=== PATIENT | female | born 1975 | race Two or more races ===

== ENCOUNTER 2017-10-31 10:24 | Emergency (ER) | payer OTHER ==
[2017-10-31 10:29] VITALS: TEMP 98.6; BMI 24.4
--- NOTE | 2017-10-31 10:38 | PDOC ---
History of Present Illness - General Chief Complaint: Headache Stated Complaint: HEADACHES Time Seen by Provider: 10/31/17 10:37 History Source: Patient Exam Limitations: No Limitations - History of Present Illness Initial Comments: This is a 41 YOF with h/o mild headaches, anemia d/t dysfuctional uterine bleeding, and BV diagnosed 2 days ago (patient has been on metronidazole since then) who p/w one day gradual onset sharp 8/10 bitemporal/frontal headache which is non-radiating. It worsens with light and noise, and she has associated nausea, NBNB vomiting x6 episodes this morning, loose non-bloody non-black diarrhea, and generalized weakness. She denies any fever, chills, constipation, neck pain, new back pain, SOB, chest pain, abdominal pain, vision changes, dizziness, numbness, tingling, focal weakness, urinary incontinence/retention, bowel incontinence, or other symptoms. She has not tried taking any medications for her symptoms. Past History - Past Medical History Allergies/Adverse Reactions: Allergies Allergy/AdvReac Type Severity Reaction Status Date / Time No Known Allergies Allergy Verified 10/31/17 10:25 Home Medications: Ambulatory Orders NK [No Known Home Medication] 10/31/17 COPD: No - Immunization History Immunization Up to Date: Yes - Suicide/Smoking/Psychosocial Hx Smoking History: Never smoked Review of Systems - Review of Systems Able to Perform ROS?: Yes Constitutional: Yes: Weakness (generalized). No: Chills, Fever, Unexplained wgt Loss HEENTM: No: Double Vision, Nose Congestion, Throat Pain Respiratory: No: Cough, Shortness of Breath Cardiac (ROS): No: Chest Pain, Palpitations ABD/GI: Yes: Diarrhea, Nausea, Vomiting. No: Constipated : No: Burning, Dysuria Musculoskeletal: No: Back Pain, Neck Pain Integumentary: No: Bruising, Rash Neurological: Yes: Headache. No: Numbness, Tingling, Weakness, Dizziness Endocrine: No: Unexplained Weight Gain, Unexplained Weight Loss *Physical Exam - Vital Signs Last Vital Signs Temp Pulse Resp BP Pulse Ox 98.6 F 97 H 18 117/50 100 10/31/17 10:26 10/31/17 10:26 10/31/17 10:26 10/31/17 10:10/31/17 10:26 - Physical Exam General Appearance: Yes: Nourished, Appropriately Dressed, Other (nontoxic and well appearing aside from mild apparent discomfort, laying in hospital bed with light off). No: Apparent Distress HEENT: positive: EOMI, DEEPTHI, Normal ENT Inspection, Normal Voice, Hearing Grossly Normal. negative: Scleral Icterus (R), Scleral Icterus (L), Nasal Congestion Neck: positive: Trachea midline, Supple, Lymphadenopathy (R), Lymphadenopathy (L ). negative: Tender, Rigid Respiratory/Chest: positive: Lungs Clear, Normal Breath Sounds. negative: Respiratory Distress, Crackles, Rhonchi, Stridor, Wheezing Cardiovascular: positive: Regular Rhythm, Regular Rate, S1, S2. negative: Edema , JVD, Murmur Gastrointestinal/Abdominal: positive: Normal Bowel Sounds, Soft. negative: Tender, Organomegaly, Pulsatile Mass, Guarding Musculoskeletal: positive: Normal Inspection. negative: Decreased Range of Motion, Vertebral Tenderness Extremity: positive: Normal Capillary Refill, Normal Inspection, Normal Range of Motion. negative: Tender, Cyanosis Integumentary: positive: Normal Color, Dry, Warm. 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 negative: EOM Palsy, Facial Droop, Numbness, Sensory Deficit, Confused, Disoriented ED Treatment Course - LABORATORY CBC & Chemistry Diagram: 10/31/17 11:30 10/31/17 11:30 Medical Decision Making - Medical Decision Making Adult female Pt p/w headache, no reported mechanism for injury, no new red flag symptoms (see HPI). Initial Vital Signs Temp Pulse Resp BP Pulse Ox 98.6 F 97 H 18 117/50 100 10/31/17 10:26 10/31/17 10:26 10/31/17 10:26 10/31/17 10:10/31/17 10:26 Exam: mildly uncomfortable, sitting in dark room, otherwise she is conversive, normal exam, normal neuro exam DDX IBNLT primary SOLORZANO syndrome (tension/migraine/cluster), trigeminal neuralgia, zoster, SAH (radha. sudden onset), subdural or epidural hematoma (radha. after trauma), ruptured/acutely expanded aneurysm, preeclampsia/eclampsia, encephalitis, meningitis, glaucoma, atypical PNA, idiopathic intracranial hypertension (uncommon in males), GCA (uncommon <50 yo), mass lesion, brain metastasis (radha. known CA patients and/or SOLORZANO with increasing severity/frequency) , brain abscess (radha. immunocompromised patients), DKA, etc. W/U ordered: CBCD CMP [place] ordered: IVF Reglan Benadryl Laboratory Tests 10/31/17 10/31/17 10/31/17 11:30 11:30 11:30 WBC 3.7 L RBC 3.82 Hgb 10.1 L Hct 30.1 L MCV 78.9 L MCH 26.5 MCHC 33.6 RDW 13.3 Plt Count 253 MPV 8.6 Absolute Neuts (auto) 1.6 Neutrophils % 43.7 Neutrophils % (Manual) 45.5 Band Neutrophils % 0.0 Lymphocytes % 31.8 Lymphocytes % (Manual) 39.6 Monocytes % 20.6 H Monocytes % (Manual) 13 H Eosinophils % 3.2 Eosinophils % (Manual) 2.0 Basophils % 0.7 Basophils % (Manual) 0.0 Myelocytes % (Man) 0 Promyelocytes % (Man) 0 Blast Cells % (Manual) 0 Nucleated RBC % 0 Metamyelocytes 0 Hypochromia 2+ Platelet Estimate Normal Sodium 141 Potassium 4.1 Chloride 106 Carbon Dioxide 26 Anion Gap 9 BUN 12 Creatinine 0.3 L Creat Clearance w eGFR > 60 Random Glucose 79 Calcium 9.9 Magnesium 1.7 L Total Bilirubin 0.6 AST 74 H ALT 117 H Alkaline Phosphatase 227 H Total Protein 7.5 Albumin 3.6 Serum , Qual Urine Color Yellow Urine Appearance Clear Urine pH 6.0 Ur Specific [place] 1.018 Urine Protein Negative Urine Glucose (UA) Negative Urine Ketones Negative Urine Blood Negative Urine Nitrite Negative Urine Bilirubin Negative Urine Urobilinogen 2.0 H Ur Leukocyte Esterase Negative 10/31/17 11:42 WBC RBC Hgb Hct MCV MCH MCHC RDW Plt Count MPV Absolute Neuts (auto) Neutrophils % Neutrophils % (Manual) Band Neutrophils % Lymphocytes % Lymphocytes % (Manual) Monocytes % Monocytes % (Manual) Eosinophils % Eosinophils % (Manual) Basophils % Basophils % (Manual) Myelocytes % (Man) Promyelocytes % (Man) Blast Cells % (Manual) Nucleated RBC % Metamyelocytes Hypochromia Platelet Estimate Sodium Potassium Chloride Carbon Dioxide Anion Gap BUN Creatinine Creat Clearance w eGFR Random Glucose Calcium Magnesium Total Bilirubin AST ALT Alkaline Phosphatase Total Protein Albumin Serum , Qual Negative Urine Color Urine Appearance Urine pH Ur Specific [place] Urine Protein Urine Glucose (UA) Urine Ketones Urine Blood Urine Nitrite Urine Bilirubin Urine Urobilinogen Ur Leukocyte Esterase Likely LFT elevation d/t metronidazole use. Patient is counseled to DC metronidazole. She has already tried and failed topical metronidazole in the past. She has an appointment with her primary care clinic tomorrow and will discuss BV treatment then. Vital Signs Temperature 98.6 F 10/31/17 12:57 Pulse Rate 92 H 10/31/17 12:57 Respiratory Rate 17 10/31/17 12:57 Blood Pressure 123/54 10/31/17 12:57 O2 Sat by Pulse Oximetry (%) 100 10/31/17 12:57 Reassessment: Patient states headache much improved, no nausea, repeat neuro exam benign. Patient has no abdominal ttp. The Pt has gotten significant relief of symptoms with ED medications. Workup is not concerning for emergency-level pathology at this time. The Pt is appropriate for discharge home w/ close outpatient f/u. She is comfortable with this plan. She will take Motrin and/or Tylenol for pain. She will follow up with her regular doctor tomorrow. Specific return precautions are discussed and they will come back to the ER if necessary. *DC/Admit/Observation/Transfer Diagnosis at time of Disposition: Transaminitis Headache Qualifiers: Headache type: unspecified Headache chronicity pattern: unspecified pattern Intractability: not intractable Qualified Code(s): R51 - Headache Nausea and vomiting Qualifiers: Vomiting type: unspecified Vomiting Intractability: non-intractable Qualified Code(s): R11.2 - Nausea with vomiting, unspecified - Discharge Dispostion Disposition: HOME Condition at time of disposition: Stable Decision to Admit order: No - Referrals - Patient Instructions Printed Discharge Instructions: DI for Headache, Liver Function Tests Additional Instructions: You were seen in the ER for a headache. We did an exam and laboratory work and we did not find any signs of an emergency. We did find that you have anemia and elevated liver enzymes, but this can be discussed with your primary care clinic. Your pain improved with the medications we gave you here in the ER. After our assessment, we believe you are not having a medical emergency and you are safe to go home. Please take [id number] pain relievers like naproxen ( Aleve) or ibuprofen (Motrin) or Tylenol. Stay very well-hydrated, and try avoiding foods containing the chemicals tyramine and nitrates (such as chocolate , cheese, and processed meats) because these are associated with migraine-type headaches. Please stop the metronidazole because this is probably causing your liver problem. Discuss treatment for your infection with your primary care clinic at your appointment tomorrow. Please come back to the ER at any time, 24 hours a day, for any new or worsening symptoms, like worsening headache, new numbness/tingling, fainting, dizziness, new vision changes, high fever, or other symptoms. If you are having symptoms that make it unsafe to drive, please call 911. - Post Discharge Activity
[2017-10-31] MEDS ORDERED: METOCLOPRAMIDE HCL INJECTION 10 MG/2 ML VIAL ONE (11:00)
[2017-10-31] MEDS ORDERED: METOCLOPRAMIDE HCL INJECTION 10 MG/2 ML VIAL IVPUSH ONE (11:03)
[2017-10-31] MEDS ORDERED: SODIUM CHLORIDE 0.9% 500 ML INFUS.BAG IV ONE (11:03)
[2017-10-31 11:47] LABS: BASO % 0.7 % (0-2.0); EOS % 3.2 % (0-4.5); HEMATOCRIT 30.1 % (32.4-45.2); HEMOGLOBIN 10.1 GM/dL (10.7-15.3); LYMPH % 31.8 % (8-40); MCH 26.5 pg (25.7-33.7); MCHC 33.6 g/dl (32.0-36.0); MEAN CELL VOLUME 78.9 fl (80-96); MEAN PLT VOLUME 8.6 fl (7.5-11.1); MONO % 20.6 % (3.8-10.2); NEUT % 43.7 % (42.8-82.8); PLATELET COUNT 253 K/MM3 (134-434); RBC 3.82 M/mm3 (3.60-5.2); RDW 13.3 % (11.6-15.6); WHITE BLOOD COUNT 3.7 K/mm3 (4.0-10.0)
[2017-10-31 11:56] LABS: URINE APPEARANCE CLEAR; URINE BILIRUBIN NEGATIVE (<2.0 mg/dL); URINE BLOOD NEGATIVE (NEGATIVE); URINE COLOR YELLOW; URINE GLUCOSE (UA) NEGATIVE (NEGATIVE); URINE KETONE NEGATIVE (NEGATIVE); URINE LEUK ESTERASE NEGATIVE (NEGATIVE); URINE NITRITE NEGATIVE (NEGATIVE); URINE PROTEIN NEGATIVE (NEGATIVE)
--- NOTE | 2017-10-31 12:10 | PDOC ---
Attending Attestation - Resident Resident Name: Johana Carcamo - ED Attending Attestation I have performed the following: I have examined & evaluated the patient, The case was reviewed & discussed with the resident, I agree w/resident's findings & plan, Exceptions are as noted - HPI HPI: 10/31/17 13:11 Patient is a 41 F, PMHx, anemia, who presents with a headache since yesterday afternoon. Patient states that her headache began yesterday around noon. She describes her headache as gradual onset, sharp, bitemporal, non-radiating, rates 8/10. She states that she also experienced nausea and vomiting (x6) this morning. She reports current sensitivity to light and sound. She has had mild headaches in the past and states her current headache feels similar but stronger. She was diagnosed with BV and started on flagyl PO 2 days ago. Denies stiff neck, rashes, fevers, chills, weakness, numbness, visual sxs. - Physicial Exam PE: 10/31/17 12:03 GENERAL: Awake, alert, and fully oriented, in no acute distress HEAD: No signs of trauma EYES: PERRLA, EOMI, sclera anicteric, conjunctiva clear ENT: Auricles normal inspection, hearing grossly normal, nares patent, oropharynx clear without exudates. Moist mucosa NECK: Normal ROM, supple, no lymphadenopathy, JVD, or masses LUNGS: Breath sounds equal, clear to auscultation bilaterally. No wheezes, and no crackles HEART: Regular rate and rhythm, normal S1 and S2, no murmurs, rubs or gallops ABDOMEN: Soft, nontender, normoactive bowel sounds. No guarding, no rebound. No masses EXTREMITIES: Normal range of motion, no edema. No clubbing or cyanosis. No cords, erythema, or tenderness NEUROLOGICAL: Normal speech, cranial nerves intact, negative pronator drift, 5/ 5 strength in all 4 extremities, normal sensation to light touch in all 4 extremities, normal cerebellar exam, normal gait, normal reflexes and tone BACK: no midline cervical, thoracic, lumbar ttp SKIN: Warm, Dry, normal turgor, no rashes or lesions noted. - Medical Decision Making 10/31/17 11:59 41yo F hx anemia, recent diagnosis of BV presents to the ED with 2 days of gradual onset bitemporal headache. Vitals and exam unremarkable. DDx includes tension headache vs migraine, unlikely SAH as no sudden onset, neuro intact, not meningitic. It's also possible headache is from flagyl which she has been on for 2 days for BV. No fevers or AMS to suggest meningitis. 10/31/17 13:19 HEadache significantly improved. AST/ALT and Alk phos mildly elevated, possibly from PO flagyl? Pt instructed to stop taking flagyl. Has f/u appt tomorrow with PMD where her LFTs should be repeated. Pt requests DC home. I discussed the physical exam findings, ancillary test results and final diagnoses with the patient. I answered all of the patient's questions. The patient was satisfied with the care received and felt comfortable with the discharge plan and treatment plan. The patient will call their primary care physician within 24 hours to arrange follow-up and will return to the Emergency Department with any new, persistent or worsening symptoms.
[2017-10-31 12:11] LABS: ALBUMIN 3.6 g/dl (3.4-5.0); ANION GAP 9 (8-16); BILIRUBIN,TOTAL 0.6 mg/dL (0.2-1.0); BLOOD UREA NITROGEN 12 mg/dL (7-18); CALCIUM 9.9 mg/dL (8.5-10.1); CHLORIDE 106 mmol/L (98-107); CO2 26 mmol/L (21-32); CREATININE 0.3 mg/dL (0.55-1.02); GLUCOSE,RANDOM 79 mg/dL (74-106); MAGNESIUM 1.7 mg/dL (1.8-2.4); POTASSIUM 4.1 mmol/L (3.5-5.1); SGOT/AST 74 U/L (15-37); SGPT/ALT 117 U/L (12-78); SODIUM 141 mmol/L (136-145); TOT PROT 7.5 g/dl (6.4-8.2)
[2017-10-31 12:12] LABS: ALK PHOS 227 U/L (45-117)
[2017-10-31 12:27] LABS: PLATELET ESTIMATE NORMAL
[2017-10-31 12:58] VITALS: BP 123/54; PULSE 92
== END 2017-10-31 13:30 | disposition home or self-care (01) ==
LOC: JER 10:24
PROC: 3E033GC Introduction of Other Therapeutic Substance into Peripheral Vein, Percutaneous Approach (ICD-10-PCS; principal; 2017-10-31)
PROC: 3E0337Z Introduction of Electrolytic and Water Balance Substance into Peripheral Vein, Percutaneous Approach (ICD-10-PCS; 2017-10-31)
DX: R74.0 Nonspecific elevation of levels of transaminase and lactic acid dehydrogenase [LDH] (principal); R51 Headache; R11.2 Nausea with vomiting, unspecified
CPT/HCPCS: 36415; 80053; 81003; 83735; 84703; 85025; 87086; 99283-25

== ENCOUNTER 2017-11-19 08:54 | Emergency (ER) | payer SELFPAY ==
[2017-11-19 08:58] VITALS: BMI 23.3
[2017-11-19] MEDS ORDERED: SODIUM CHLORIDE 1,000 ML IV STA (09:49)
[2017-11-19] MEDS ORDERED: ONDANSETRON 4 MG/2 ML VIAL IVPUSH ONE (09:49)
[2017-11-19] MEDS ORDERED: FAMOTIDINE 20 MG/50 ML IVPB 20 MG/50 ML MG IVPB ONE ×2 (10:00→10:49)
--- NOTE | 2017-11-19 10:38 | PDOC ---
History of Present Illness - General Chief Complaint: Nausea/Vomiting Stated Complaint: VOMITING, DIARRHEA Time Seen by Provider: 11/19/17 09:28 - History of Present Illness Initial Comments: 11/19/17 11:38 The patient is a 41-year-old female, with a significant past medical history of anemia, who presents to the ED with nausea, vomiting, and diarrhea that began yesterday morning. The patient reports vomiting innumerable times since yesterday; no blood noted in emesis. She reports 10-15 episodes of loose, watery stools; no blood or mucus noted. The patient has not been able to tolerate any fluids or solids. She denies any recent changes in her diet, recent sick contacts, or recent travel. On exam, the patient reports feeling generally weak. The patient has not followed up with her PCP regarding her current symptoms. Pt states she is currently being worked up by her PMD for her thyroid and liver - pt had elevated LFTs seen on bloodwork during her last ED bisit. The patient denies any fever, chills, or abdominal/pelvic pain. Denies any chest pain or shortness of breath. Denies dysuria, hematuria, frequency or urgency Denies vaginal DC or bleeding. Allergies: NKA Past surgical history: None reported. Social history: No reported cigarette, alcohol, or drug use. Past History - Past Medical History Allergies/Adverse Reactions: Allergies Allergy/AdvReac Type Severity Reaction Status Date / Time No Known Allergies Allergy Verified 11/19/17 08:56 Home Medications: Ambulatory Orders Ondansetron [Zofran Odt -] 4 mg SL TID PRN #12 od.tablet 11/19/17 CVA: No COPD: No Other medical history: "LIVER DISEASE" - Immunization History Immunization Up to Date: Yes - Suicide/Smoking/Psychosocial Hx Smoking History: Never smoked Hx Alcohol Use: No Drug/Substance Use Hx: No Substance Use Type: None Review of Systems - Review of Systems Comments:: 11/19/17 11:44 GENERAL/CONSTITUTIONAL: (+)generalized weakness, loss of appetite. No fever or chills. HEAD, EYES, EARS, NOSE AND THROAT: No change in vision. No ear pain or discharge. No sore throat. GASTROINTESTINAL: (+)nausea, vomiting, diarrhea. No constipation. GENITOURINARY: No dysuria, frequency, or change in urination. CARDIOVASCULAR: No chest pain or shortness of breath. RESPIRATORY: No cough, wheezing, or hemoptysis. MUSCULOSKELETAL: No joint or muscle swelling or pain. No neck or back pain. SKIN: No rash NEUROLOGIC: No headache, vertigo, loss of consciousness, or change in strength/ sensation. ENDOCRINE: No increased thirst. No abnormal weight change. HEMATOLOGIC/LYMPHATIC: No anemia, easy bleeding, or history of blood clots. ALLERGIC/IMMUNOLOGIC: No hives or skin allergy. *Physical Exam - Vital Signs Last Vital Signs Temp Pulse Resp BP Pulse Ox 98.0 F 90 16 124/59 100 11/19/17 08:56 11/19/17 08:56 11/19/17 08:56 11/19/17 08:56 11/19/17 08:56 - Physical Exam Comments: 11/19/17 11:44 GENERAL: Awake, alert, and fully oriented, in no acute distress HEAD: No signs of trauma EYES: PERRLA, EOMI, sclera anicteric, conjunctiva clear ENT: Auricles normal inspection, hearing grossly normal, nares patent, oropharynx clear without exudates. Moist mucosa NECK: (+)+b/l symmetric goiter with no palpable nodules. Normal ROM, supple, no lymphadenopathy, JVD. LUNGS: Breath sounds equal, clear to auscultation bilaterally. No wheezes, and no crackles HEART: Regular rate and rhythm, normal S1 and S2, no murmurs, rubs or gallops ABDOMEN: Soft, nontender, normoactive bowel sounds. No guarding, no rebound. No masses. No CVAT. EXTREMITIES: Normal range of motion, no edema. No clubbing or cyanosis. No cords , erythema, or tenderness BACK: No midline spinal tenderness in cervical/thoracic/lumbar region NEUROLOGICAL: Normal speech, cranial nerves intact, negative pronator drift, 5/ 5 strength in all 4 extremities, normal sensation to light touch in all 4 extremities, normal cerebellar exam, normal gait, normal reflexes and tone SKIN: Warm, Dry, normal turgor, no rashes or lesions noted. ED Treatment Course - LABORATORY CBC & Chemistry Diagram: 11/19/17 10:35 11/19/17 10:35 Medical Decision Making - Medical Decision Making 11/19/17 10:38 41yo F hx anemia presents to the ED with 24hrs of N/V/D. Vitals wnl. Exam with no abd ttp, +thyroid goiter. DDx includes but not limited to gastroenteritis vs colitis. Plan -labs -upt -ua -ivf, pepcid, zofran -reassess 11/19/17 12:05 Labs remarkable for: 1) once again elevated LFTs, but lower than during last visit 2) elevated monocyte % on differental 3) TSH undetectable There appears to be a chronic process going on that is unlikely related to presenting sxs of N/V/D. These likely represent a viral syndrome. With regards to abnormal labs, discussed with her PMD Dr. Bereket Monroy. Pt was seen by Dr. Hernández (her partner) in the office last week and had repeat labs that were similar to our results. Pt however did not have a TSH checked during previous visits. Discussed the goiter with Dr. Kellogg, she wants to see her in the office tomorrow after 12p when they have walk in hours. Clinically, pt does not appear to be in thyroid storm with normal vitals, mental status. Since she had good follow up in place, will PO chall pt at this time and if she tolerates , will DC to f/u tomorrow. Results explained to patient. 11/19/17 12:42 Pt tolerating PO. Given copy of labs. Told she will have diarrhea likely for a few more days. Prescribed zofran. I discussed the physical exam findings, ancillary test results and final diagnoses with the patient. I answered all of the patient's questions. The patient was satisfied with the care received and felt comfortable with the discharge plan and treatment plan. The patient will call their primary care physician within 24 hours to arrange follow-up and will return to the Emergency Department with any new, persistent or worsening symptoms. *DC/Admit/Observation/Transfer Diagnosis at time of Disposition: Transaminitis, Nausea and vomiting, Goiter, Diarrhea - Discharge Dispostion Disposition: HOME Condition at time of disposition: Stable Decision to Admit order: No - Prescriptions Prescriptions: Ondansetron [Zofran Odt -] 4 mg SL TID PRN #12 od.tablet PRN Reason: Nausea - Referrals Referrals: Michael Monroy [Non Staff, Medical] - - Patient Instructions Printed Discharge Instructions: A Look at Thyroid Disease, DI for Diarrhea and Traveler's Diarrhea -- Adult, DI for Nausea -- Adult, DI for Vomiting -- Adult, Thyroid Additional Instructions: Your labs in the emergency department were again abnormal. As discussed, please see Dr. Monroy tomorrow after 12pm during her walk in hours. She will be expecting you. Make sure to discuss: 1) Your thyroid goiter and abnormal thyroid function test. 2) Your liver function tests were better than last time, but are still abnormal and require work up 3) Your anemia With regards to your nausea, vomiting, and diarrhea, these symptoms are likely due to a virus. I have prescribed a medication for nausea/vomiting. Try to drink as much fluid as possible, this medication should help. You will likely continue to have diarrhea for a few more days. Return to the emergency department if you have any new, worsening, or concerning symptoms. Print Language: GIBRALTARIAN - Post Discharge Activity - Attestations Physician Attestion: 11/19/17 12:21 I, Dr. Jena Guerrier MD, attest that this document has been prepared under my direction and personally reviewed by me in its entirety. I further attest, that it accurately reflects all work, treatment, procedures and medical decision -making performed by me.
[2017-11-19 10:48] LABS: BASO % 0.8 % (0-2.0); EOS % 2.1 % (0-4.5); HEMOGLOBIN 10.4 GM/dL (10.7-15.3); LYMPH % 31.2 % (8-40); MCH 26.2 pg (25.7-33.7); MCHC 33.5 g/dl (32.0-36.0); MEAN CELL VOLUME 78.3 fl (80-96); MEAN PLT VOLUME 8.3 fl (7.5-11.1); NEUT % 40.9 % (42.8-82.8); PLATELET COUNT 270 K/MM3 (134-434); RBC 3.97 M/mm3 (3.60-5.2); RDW 13.8 % (11.6-15.6)
[2017-11-19] MEDS ORDERED: ONDANSETRON 4 MG/2 ML VIAL ONE (10:49)
[2017-11-19 10:55] LABS: URINE APPEARANCE CLEAR; URINE BILIRUBIN NEGATIVE (<2.0 mg/dL); URINE COLOR DKYELLOW; URINE GLUCOSE (UA) NEGATIVE (NEGATIVE); URINE KETONE NEGATIVE (NEGATIVE); URINE LEUK ESTERASE NEGATIVE (NEGATIVE); URINE NITRITE NEGATIVE (NEGATIVE); URINE PROTEIN NEGATIVE (NEGATIVE); URINE UROBILINOGEN 4.0 E.U/dl mg/dL (0.2-1.0)
[2017-11-19 10:57] LABS: HCG,QUALITATIVE URINE NEGATIVE
[2017-11-19 11:22] LABS: ALBUMIN 3.6 g/dl (3.4-5.0); ANION GAP 6 (8-16); BLOOD UREA NITROGEN 10 mg/dL (7-18); CALCIUM 9.6 mg/dL (8.5-10.1); CHLORIDE 106 mmol/L (98-107); CO2 26 mmol/L (21-32); CREATININE 0.3 mg/dL (0.55-1.02); GLUCOSE,RANDOM 93 mg/dL (74-106); LIPASE 154 U/L (73-393); POTASSIUM 4.2 mmol/L (3.5-5.1); SGOT/AST 84 U/L (15-37); SGPT/ALT 93 U/L (12-78); SODIUM 138 mmol/L (136-145)
[2017-11-19 11:33] LABS: ALK PHOS 189 U/L (45-117); BILIRUBIN,TOTAL 0.8 mg/dL (0.2-1.0); TOT PROT 7.9 g/dl (6.4-8.2)
[2017-11-19 13:57] VITALS: BP 120/62; PULSE 86; TEMP 98.2
[2017-11-19 15:56] LABS: PLATELET ESTIMATE ADEQUATE
== END 2017-11-19 13:57 | disposition home or self-care (01) ==
LOC: JER 08:54
PROC: 3E033GC Introduction of Other Therapeutic Substance into Peripheral Vein, Percutaneous Approach (ICD-10-PCS; principal; 2017-11-19)
DX: R74.0 Nonspecific elevation of levels of transaminase and lactic acid dehydrogenase [LDH] (principal); E04.8 Other specified nontoxic goiter
CPT/HCPCS: 36415; 80053; 81003; 83690; 84443; 84703; 85025; 87086; 99281-25; J7030

== ENCOUNTER 2018-01-11 13:12 | Emergency (ER) | payer OTHER ==
[2018-01-11 13:36] VITALS: BP 138/55; PULSE 72; TEMP 98.5; BMI 22.9
--- NOTE | 2018-01-11 14:12 | PDOC ---
Attending Attestation - Resident Resident Name: Edwar Gonzalez - ED Attending Attestation I have performed the following: I have examined & evaluated the patient, The case was reviewed & discussed with the resident, I agree w/resident's findings & plan, Exceptions are as noted - HPI HPI: 01/11/18 16:11 The patient is a 42-year-old female present to the emergency department with palpitations. The patient presents with 4 days of heart palpitations. The patient reports associated concern of B/l eye swelling and increased lethargy. Denies chest pain, shortness of breath, dyspnea or abdominal pain. Denies fever , chills. Denies unintentional weight loss. Denies changes in menstruation cycle. Allergies: NKA PMHx: anemia, hyperthyroidism PSHx: Liposuction 06/2017 SHx: None PCP: Dr Bereket Monroy - Physicial Exam PE: 01/11/18 16:08 GENERAL: Awake, alert, and fully oriented, in no acute distress HEAD: No signs of trauma EYES: (+) Slight Exophthalmos PERRLA, EOMI, sclera anicteric, conjunctiva clear NECK: (+) goiter. Normal ROM, supple, no lymphadenopathy, JVD. LUNGS: Breath sounds equal, clear to auscultation bilaterally. No wheezes, and no crackles HEART: Regular rate and rhythm, normal S1 and S2, no murmurs, rubs or gallops ABDOMEN: Soft, nontender, normoactive bowel sounds. No guarding, no rebound. No masses NEUROLOGICAL: Normal speech, normal gait - Medical Decision Making 01/11/18 16:08 Documentation prepared by Dahiana Zaragoza, acting as regional medical director for Irlanda Edwards MD. <Dahiana Zaragoza - Last Filed: 01/11/18 16:11> - Medical Decision Making 01/11/18 16:14 Pt presents to the ED complaining of palpitations for one day. Denies associated complaints. EKG shows sinus rhythm without ischemia. Differential includes hyperthyroidism, electrolyte disturbance, less likely occult arrhythmia. will check labs and cardiac enzymes. CXR, reassess. <Irlanda Edwards - Last Filed: 01/11/18 16:18>
--- NOTE | 2018-01-11 14:46 | PDOC ---
History of Present Illness - General Chief Complaint: Palpitations Stated Complaint: PALPITATIONS Time Seen by Provider: 01/11/18 13:58 - History of Present Illness Initial Comments: 01/11/18 14:46 42 yo F with a significant past medical history of anemia and hyperthyroidism s/ p thyrotoxicosis 1 month ago is here with palpitations and eye swelling for the past 4 days. She has also been feeling lethargic. She has no chest pain, difficulty breathing, or abdominal pain. She denies recent fevers, chills or infections. Denies hot or cold intolerance, denies recent weight gain or loss. She has been eating and drinking normally. She denies diaphoresis. Denies menstrual changes. Denies dysuria, frequency, urgency, diarrhea or constipation. She is taking methimazole bc of her recent thyrotoxicosis. She has gained weight over the past 2 weeks intentionally bc she was told she is too skinny. 01/11/18 14:49 Past History - Past Medical History Allergies/Adverse Reactions: Allergies Allergy/AdvReac Type Severity Reaction Status Date / Time No Known Allergies Allergy Verified 01/11/18 13:33 Home Medications: Ambulatory Orders Omeprazole 20 mg PO BID 12/02/17 RX: Clarithromycin 500 mg PO BID 12/02/17 Miscellaneous Medical Supply [Out[place] Order] [place] [facility] [place] Order[place] [facility] [place]: Amoxicillin - [Amoxicillin 500mg Capsule -] 1,000 mg PO BID 12/07/17 RX: Magnesium Oxide [Mag-Ox -] 400 mg PO DAILY #0 tablet 12/07/17 RX: Methimazole [Tapazole -] 15 mg PO TID #90 tablet 12/07/17 RX: Prochlorperazine Maleate [Compazine -] 5 mg PO BID #20 tablet 12/07/17 RX: propRANOLol HCL [Inderal -] 40 mg PO TID #90 tablet 12/07/17 RX: Propranolol HCl 40 mg PO TID #45 solution 01/11/18 Anemia: Yes COPD: No Liver Disease: Yes Thyroid Disease: Yes (hyper) - Surgical History Appendectomy: Yes - Immunization History Immunization Up to Date: Yes - Suicide/Smoking/Psychosocial Hx Smoking History: Never smoked Have you smoked in the past 12 months: No Hx Alcohol Use: No Drug/Substance Use Hx: No Substance Use Type: None Hx Substance Use Treatment: No Review of Systems - Review of Systems Comments:: 01/11/18 14:56 CONSTITUTIONAL: Absent: fever, chills, diaphoresis, generalized weakness, malaise, loss of appetite HEENT: Positive: Eye swelling Absent: rhinorrhea, nasal congestion, throat pain, throat swelling, difficulty swallowing, mouth swelling, ear pain, eye pain, visual Changes CARDIOVASCULAR: Positive: Palpitations Absent: chest pain, syncope, irregular heart rate, lightheadedness, peripheral edema RESPIRATORY: Absent: cough, shortness of breath, dyspnea with exertion, orthopnea, wheezing, stridor, hemoptysis GASTROINTESTINAL: Absent: abdominal pain, abdominal distension, nausea, vomiting, diarrhea, constipation, melena, hematochezia GENITOURINARY: Absent: dysuria, frequency, urgency, hesitancy, hematuria, flank pain, genital pain MUSCULOSKELETAL: Absent: myalgia, arthralgia, joint swelling SKIN: Absent: rash, itching, pallor HEMATOLOGIC/IMMUNOLOGIC: Absent: easy bleeding, easy bruising, lymphadenopathy, frequent infections ENDOCRINE: Absent: unexplained weight gain, unexplained weight loss, heat intolerance, cold intolerance NEUROLOGIC: Absent: headache, focal weakness or paresthesias, dizziness, unsteady gait, seizure, mental status changes, bladder or bowel incontinence PSYCHIATRIC: Absent: anxiety, depression, suicidal or homicidal ideation, hallucinations. *Physical Exam - Vital Signs Last Vital Signs Temp Pulse Resp BP Pulse Ox 98.5 F 72 16 138/55 99 01/11/18 13:15 01/11/18 13:15 01/11/18 13:15 01/11/18 13:15 01/11/18 13:15 - Physical Exam Comments: 01/11/18 14:58 GENERAL: Well developed, well nourished. Awake and alert. No acute distress. HEENT: She has bilateral proptosis. No lid lag. Normocephalic, atraumatic. PERRLA, EOMI. No conjunctival pallor. Sclera are non- icteric. Moist mucous membranes. Oropharynx is clear. NECK: There is diffuse bilateral thyromegaly. she has a visible significant goiter. Supple. Full ROM. No JVD. Carotid pulses 2+ and symmetric, without bruits. No lymphadenopathy. CARDIOVASCULAR: Regular rate and rhythm. No murmurs, rubs, or gallops. Distal pulses are 2+ and symmetric. PULMONARY: No evidence of respiratory distress. Lungs clear to auscultation bilaterally. No wheezing, rales or rhonchi. ABDOMINAL: Soft. Non-tender. Non-distended. No rebound or guarding. No organomegaly. Normoactive bowel sounds. MUSCULOSKELETAL Normal range of motion at all joints. No bony deformities or tenderness. No CVA tenderness. EXTREMITIES: No cyanosis. No clubbing. No edema. No calf tenderness. SKIN: Warm and dry. Normal capillary refill. No rashes. No jaundice. NEUROLOGICAL: Alert, awake, appropriate. Cranial nerves 2-12 intact. No deficits to light touch in face, upper extremities and lower extremities. No motor deficits in the in face, upper extremities and lower extremities. Normoreflexic in the upper and lower extremities. Normal speech. Toes are down-going bilaterally. Gait is normal without ataxia. PSYCHIATRIC: Cooperative. Good eye contact. Appropriate mood and affect. ED Treatment Course - LABORATORY CBC & Chemistry Diagram: 01/11/18 15:10 01/11/18 15:10 Medical Decision Making - Medical Decision Making 01/11/18 15:01 42 yo F with a significant past medical history of anemia and hyperthyroidism s/ p thyrotoxicosis 1 month ago is here with palpitations and eye swelling for the past 4 days. Her VS are WNL. She has a diffuse goiter as well as significant proptosis, no lid lag. MDM: She was put on methimazole after her recent bout of thyrotoxicosis. Will start with a basic workup. Plan: Cbc, Cmp, Ekg, trop, tsh, T4, Hcg, re-assess. Patient states that she felt great until she ran out of her propranolol, then the palpitations began. She is requesting a refill for the next two weeks at which point she will be able to see her fresh foods clerk and get a permanent prescription. PlanL giving her 2 weeks worth of propranolol and having her FU with her endocronologist and fresh foods clerk. 01/11/18 15:01 01/11/18 17:53 *DC/Admit/Observation/Transfer Diagnosis at time of Disposition: Palpitations - Discharge Dispostion Disposition: HOME Condition at time of disposition: Stable Decision to Admit order: No - Prescriptions Prescriptions: RX: Propranolol HCl 40 mg PO TID #45 solution - Referrals Referrals: Ryder Gallegos MD [Staff Physician] - [facility] [place] [facility] [place] [[place] Group] - Patient Instructions Printed Discharge Instructions: Hyperthyroidism, A Look at Thyroid Disease, DI for Palpitations Additional Instructions: Please make sure to poultry picker your medication from [facility]. Please make sure to schedule both a cardiology and an endocronology appointment in the next 3 to 5 days. Come back to the ER if you develop a bad fever, starts having difficulty breathing, get bad palpitations or have any other concerns. Print Language: VENEZUELAN - Post Discharge Activity
[2018-01-11 16:00] LABS: HCG,QUALITATIVE URINE Negative
[2018-01-11 16:21] LABS: URINE APPEARANCE CLEAR; URINE BILIRUBIN NEGATIVE (<2.0 mg/dL); URINE COLOR STRAW; URINE GLUCOSE (UA) NEGATIVE (NEGATIVE); URINE KETONE NEGATIVE (NEGATIVE); URINE LEUK ESTERASE NEGATIVE (NEGATIVE); URINE NITRITE NEGATIVE (NEGATIVE); URINE PROTEIN NEGATIVE (NEGATIVE); URINE UROBILINOGEN NEGATIVE mg/dL (0.2-1.0)
[2018-01-11 16:29] LABS: BASO % 1.4 % (0-2.0); EOS % 7.7 % (0-4.5); HEMATOCRIT 39.1 % (32.4-45.2); HEMOGLOBIN 13.1 GM/dL (10.7-15.3); MCH 27.8 pg (25.7-33.7); MCHC 33.5 g/dl (32.0-36.0); MEAN CELL VOLUME 82.8 fl (80-96); MEAN PLT VOLUME 8.9 fl (7.5-11.1); MONO % 6.3 % (3.8-10.2); NEUT % 41.6 % (42.8-82.8); RBC 4.71 M/mm3 (3.60-5.2); RDW 17.3 % (11.6-15.6); WHITE BLOOD COUNT 7.8 K/mm3 (4.0-10.0)
[2018-01-11 16:52] LABS: ANION GAP 12 (8-16); BLOOD UREA NITROGEN 10 mg/dL (7-18); CALCIUM 9.3 mg/dL (8.5-10.1); CHLORIDE 106 mmol/L (98-107); CO2 22 mmol/L (21-32); GLUCOSE,RANDOM 73 mg/dL (74-106); MAGNESIUM 1.9 mg/dL (1.8-2.4); POTASSIUM 4.3 mmol/L (3.5-5.1); SODIUM 140 mmol/L (136-145)
[2018-01-11 16:55] LABS: CREATININE 0.6 mg/dL (0.55-1.02); PHOSPHOROUS 3.4 mg/dL (2.5-4.9); SGOT/AST 39 U/L (15-37); SGPT/ALT 51 U/L (12-78)
[2018-01-11 17:01] LABS: ALK PHOS 330 U/L (45-117); BILIRUBIN,TOTAL 0.4 mg/dL (0.2-1.0); TOT PROT 8.9 g/dl (6.4-8.2)
[2018-01-11] MEDS ORDERED: ALBUTEROL SO4 0.5 % INH SOLN 2.5 MG/0.5 ML VIAL.NEB. NEB ONE ×3 (17:06→17:07)
[2018-01-11] MEDS ORDERED: ALBUTEROL SO4 0.083% IH SOL 2.5 MG/3 ML VIAL.NEB. NEB ONE (17:10)
--- NOTE | 2018-01-13 13:16 | EKG ---
Test Reason : Blood Pressure : / mmHG Vent. Rate : 061 BPM Atrial Rate : 061 BPM P-R Int : 162 ms QRS Dur : 078 ms QT Int : 412 ms P-R-T Axes : -19 035 035 degrees QTc Int : 414 ms NORMAL SINUS RHYTHM ANTEROSEPTAL INFARCT (CITED ON OR BEFORE 02-DEC-2017) ABNORMAL ECG Confirmed by Henrique Philippe MD ([id number]) on 01/13/2018 1:15:00 PM Referred By: Confirmed By:Henrique Philippe MD
== END 2018-01-11 18:23 | disposition home or self-care (01) ==
LOC: JER 13:12
DX: R00.2 Palpitations (principal); E05.00 Thyrotoxicosis with diffuse goiter without thyrotoxic crisis or storm; D64.9 Anemia, unspecified
CPT/HCPCS: 36415; 71046-TC-FY; 80053; 81003; 82550; 83735; 84100; 84436; 84443; 84484; 84703; 85025; 93005; 93010; 99283-25

== ENCOUNTER 2018-02-13 11:40 | Emergency (ER) | payer OTHER ==
--- NOTE | 2018-02-13 11:57 | PDOC ---
History of Present Illness - General Chief Complaint: Palpitations Stated Complaint: Palpitations Time Seen by Provider: 02/13/18 11:51 History Source: Patient Exam Limitations: No Limitations - History of Present Illness Initial Comments: 02/13/18 11:52 This is a 42 YOF with h/o hyperthyroidism with thyrotoxicosis in 11/2017 (on methimazole), recurrent episodes of palpitations, anemia, liver disease, and appendectomy, who p/w rapid palpitations since yesterday after not taking her propranolol for the past week. Her outpatient provider just sent her prescription for propranolol to her pharmacy this morning, and the patient had planned on just going to pick it up and taking it at home to see if symptoms resolved, but she was instructed by this provider over the phone to come to the ED for evaluation. She was seen here in the ED on 01/11/18 with the same symptoms after running out of her home propranolol prescription, was given a 2 week refill, and was discharged home with instructions to follow up with her human resource internship and her maintenance engineer. She states that she did follow up with them after the appointment and everything was at her baseline. The patient notes she has a thyroid procedure scheduled for 03/04/18. She has no symptoms other than the intermittent rapid, pounding palpitations, and a very mild headache to the muscles on the back of her head which started gradually and feels the same as her prior headaches. She denies f/c/n/v/d/c, n/t/w, CP/SOB, or other symptoms. Past History - Past Medical History Allergies/Adverse Reactions: Allergies Allergy/AdvReac Type Severity Reaction Status Date / Time No Known Allergies Allergy Verified 02/13/18 11:45 Home Medications: Ambulatory Orders Clarithromycin 500 mg PO BID 12/02/17 Omeprazole 20 mg PO BID 12/02/17 Amoxicillin - [Amoxicillin 500mg Capsule -] 1,000 mg PO BID 12/07/17 Magnesium Oxide [Mag-Ox -] 400 mg PO DAILY #0 tablet 12/07/17 Methimazole [Tapazole -] 15 mg PO TID #90 tablet 12/07/17 Miscellaneous Medical Supply [Outpatient Order] 1 each ASDIR #1 misc Miscellaneous Medical Supply [Outpatient Order] 1 each ASDIR #1 [facility] [place] Prochlorperazine Maleate [Compazine -] 5 mg PO BID #20 tablet 12/07/17 propRANOLol HCL [Inderal -] 40 mg PO TID #90 tablet 12/07/17 Propranolol HCl 40 mg PO TID #30 ml 01/11/18 Propranolol HCl 40 mg PO TID #45 solution 01/11/18 Anemia: Yes COPD: No Liver Disease: Yes Thyroid Disease: Yes (hyper) - Surgical History Appendectomy: Yes - Immunization History Immunization Up to Date: Yes - Suicide/Smoking/Psychosocial Hx Smoking History: Never smoked Have you smoked in the past 12 months: No Hx Alcohol Use: No Drug/Substance Use Hx: No Substance Use Type: None Hx Substance Use Treatment: No Review of Systems - Review of Systems Able to Perform ROS?: Yes Constitutional: No: Chills, Fever, Unexplained wgt Loss HEENTM: No: Nose Congestion, Throat Pain Respiratory: No: Cough, Shortness of Breath Cardiac (ROS): Yes: Palpitations. No: Chest Pain ABD/GI: No: Constipated, Diarrhea, Nausea, Vomiting : No: Burning, Dysuria Musculoskeletal: No: Back Pain, Neck Pain Integumentary: No: Bruising, Rash Neurological: No: Headache, Numbness, Tingling, Weakness, Dizziness Endocrine: No: Unexplained Weight Gain, Unexplained Weight Loss *Physical Exam - Vital Signs Last Vital Signs Temp Pulse Resp BP Pulse Ox 97.5 F L 64 16 118/52 L 100 02/13/18 11:40 02/13/18 12:14 02/13/18 12:14 02/13/18 12:14 02/13/18 12:14 02/13/18 12:09 GENERAL: nontoxic and well-appearing, nourished, A/Ox4, no acute distress, speaking in full sentences, answers questions appropriately HEENT: very enlarged thyroid bilaterally/significant goiter, right lobe>left lobe, thyroid is firm but nontender, PERRLA, EOMI, no lid lag, no proptosis, moist mucous membranes, no posterior pharyngeal erythema, no tonsillar swelling or exudates, no cervical lymphadenopathy NECK: No cervical spine midline ttp or stepoff or deformity, full ROM, supple CARDIOVASCULAR: Heart regular rate and rhythm, normal S1S2, no MGR, radial and DP pulses 2+ and symmetric, capillary refill <2 seconds, extremities warm and well-perfused Chest wall: Normal appearance, no rash, no bruising, no costal stepoff or deformity, nontender to compression LUNGS/RESPIRATORY: No respiratory distress, normal and symmetric chest movements during respirations, lungs CTA bilaterally, equal breath sounds, no cyanosis, no nail clubbing GI/ABDOMEN: Normal symmetric appearance, normoactive bowel sounds, soft, no tenderness to palpation, no midline pulsatile masses, no palpated organomegaly : No CVA tenderness, normal external appearance, no lesions BACK: No midline ttp or stepoff or deformity of thoracic or lumbar spine EXTREMITIES: distal pulses 2+, warm and well-perfused, no LE edema SKIN: Warm and dry, no pallor, no jaundice, no bruising, no rash, no skin breakdown, no cuts, no lesions NEUROLOGICAL: GCS 15, CN II-XII grossly intact, ambulating with normal gait, moving all extremities, 5/5 strength proximally and distally, no facial droop, no decreased sensation Heart Score/ECG Review #1 02/13/18 11:45 Sinus rhythm, rate of 63, normal axis and intervals, no ischemic ST-T changes ED Treatment Course - LABORATORY CBC & Chemistry Diagram: 02/13/18 13:36 02/13/18 13:36 - ADDITIONAL ORDERS Additional order review: Laboratory Results 02/13/18 02/13/18 13:36 13:36 Sodium 138 Potassium 4.0 Chloride 108 H Carbon Dioxide 24 Anion Gap 6 L BUN 9 Creatinine 0.5 L Creat Clearance w eGFR > 60 Random Glucose 103 Calcium 9.0 Phosphorus 3.2 Magnesium 1.8 Total Bilirubin 0.3 AST 33 ALT 45 Alkaline Phosphatase 245 H Creatine Kinase 77 Troponin I < 0.02 Total Protein 8.1 Albumin 3.6 TSH < 0.01 L Free T4 1.49 H Serum , Qual Negative 02/13/18 13:36 RBC 4.26 MCV 83.6 MCHC 33.8 RDW 15.1 D MPV 8.1 Neutrophils % 47.3 Lymphocytes % 34.2 D Monocytes % 10.4 H Eosinophils % 7.9 H Basophils % 0.2 Medical Decision Making - Medical Decision Making 02/13/18 12:11 Adult female Pt p/w rapid palpitations. Initial Vital Signs Temp Pulse Resp BP Pulse Ox 97.5 F L 71 16 120/50 L 100 02/13/18 11:40 02/13/18 11:40 02/13/18 11:40 02/13/18 11:40 02/13/18 11:40 Exam: As noted in Physical Exam section. DDX IBNLT: hyperthyroidism, tachyarrhythmia (e. g. SVT, re-entrant tachycardia, WPW, Brugada, long QT, AF/AFL w/ RVR, MAT, ventricular dysrhythmia), ischemia ( ACS), structural heart condition (MVP, mitral stenosis, atrial enlargement, HOCM ), anxiety/panic, hypoxia, anemia (e. g. hemorrhage from heavy menstruation, ruptured ectopic, etc), PE, PTX, bronchitis/PNA, sepsis/shock, tamponade, metabolic (e. g. DKA, hypoglycemia), catecholamine surge (e. g. pheochromocytoma ), anxiety/panic disorder, medication effect, substance use, etc. W/U ordered: Labs as noted below, EKG TX ordered: Propranolol 40 mg PO (patient's normal dose) EKG: Reviewed; results as noted in ECG Review section. Vital Signs Temperature 97.5 F L 02/13/18 11:40 Pulse Rate 64 02/13/18 12:14 Respiratory Rate 16 02/13/18 12:14 Blood Pressure 118/52 L 02/13/18 12:14 O2 Sat by Pulse Oximetry (%) 100 02/13/18 12:14 Laboratory Tests 02/13/18 02/13/18 02/13/18 13:36 13:36 13:36 WBC 5.0 RBC 4.26 Hgb 12.0 Hct 35.6 MCV 83.6 MCH 28.2 MCHC 33.8 RDW 15.1 D Plt Count 317 D MPV 8.1 Absolute Neuts (auto) 2.4 Neutrophils % 47.3 Lymphocytes % 34.2 D Monocytes % 10.4 H Eosinophils % 7.9 H Basophils % 0.2 Nucleated RBC % 0 Sodium 138 Potassium 4.0 Chloride 108 H Carbon Dioxide 24 Anion Gap 6 L BUN 9 Creatinine 0.5 L Creat Clearance w eGFR > 60 Random Glucose 103 Calcium 9.0 Phosphorus 3.2 Magnesium 1.8 Total Bilirubin 0.3 AST 33 ALT 45 Alkaline Phosphatase 245 H Creatine Kinase 77 Troponin I < 0.02 Total Protein 8.1 Albumin 3.6 TSH < 0.01 L Free T4 1.49 H Serum , Qual Negative The Pt has gotten significant relief of symptoms while in the ED. She does not have EKG or other workup findings concerning for life-threatening arrhythmia. Her lab work shows hypothyroid pattern but not thyroid storm/thyrotoxicosis. Actually, her lab work looks significantly better than recent prior [facility] visits. She is appropriate for discharge with close outpatient follow up. Her Rx is at her pharmacy (for propranol) per her report. She will take her propranolol as Rx and f/u with her outpatient providers. She is comfortable with this plan and will follow up with her primary care provider in 1-3 days. Specific return precautions are discussed and she will come back to the ER if necessary. *DC/Admit/Observation/Transfer Diagnosis at time of Disposition: Palpitations, Hyperthyroidism - Discharge Dispostion Disposition: HOME Condition at time of disposition: Stable Decision to Admit order: No - Referrals Referrals: [facility] [place] [facility] [place] [Provider Group] - Patient Instructions Printed Discharge Instructions: DI for Palpitations Additional Instructions: YOU WERE SEEN IN THE ER FOR PALPITATIONS. WE DID LAB WORK ON YOUR BLOOD AND URINE, AND AN ELECTROCARDIOGRAM, AND WE DID NOT FIND ANY CONCERNING ABNORMALITIES. YOUR SYMPTOMS IMPROVED WITH THE MEDICATION WE GAVE YOU IN THE ER (YOUR NORMAL PROPRANOLOL DOSE). AFTER OUR ASSESSMENT, WE DO NOT BELIEVE YOU ARE HAVING A MEDICAL EMERGENCY AT THIS TIME, AND WE BELIEVE YOU ARE SAFE TO GO HOME. PLEASE COIL FORMER YOUR PROPRANOLOL PRESCRIPTION, AND TAKE IT EXACTLY PRESCRIBED. FOLLOW UP WITH YOUR PRIMARY CARE PROVIDER IN 1-3 DAYS. CALL THEIR CLINIC SOON POSSIBLE, TELL THEM YOU WERE SEEN IN THE ER, AND TELL THEM YOU NEED AN APPOINTMENT. IF YOU HAVE ANY NEW OR WORSENING SYMPTOMS, ESPECIALLY WORSENING PALPITATIONS, CHEST DISCOMFORT, SHORTNESS OF BREATH, SWEATS, NAUSEA, LOSS OF CONSCIOUSNESS, OR OTHER SYMPTOMS, PLEASE COME BACK TO THE ER AT ANY TIME (24 HOURS A DAY). IF YOU ARE HAVING SEVERE OR LIFE THREATENING SYMPTOMS, OR SYMPTOMS THAT MAKE IT UNSAFE TO DRIVE OR HAVE SOMEONE DRIVE YOU, PLEASE CALL 911. - Post Discharge Activity
[2018-02-13 12:14] VITALS: TEMP 97.5; BMI 23.3
--- NOTE | 2018-02-13 12:40 | PDOC ---
Attending Attestation - Resident Resident Name: Johana Carcamo - ED Attending Attestation I have performed the following: I have examined & evaluated the patient, The case was reviewed & discussed with the resident, I agree w/resident's findings & plan, Exceptions are as noted - HPI HPI: 02/13/18 12:36 42-year-old female with history of hyperthyroidism presents with palpitations. Patient reported 1 week of the symptoms with intermittent rapid palpitations. She denies shortness of breath or chest pain. States that this occurs when she runs out of her propanolol medication. The patient's outpatient physician did write a prescription for the propanolol but advised patient be checked in the ER. She currently has no other symptoms. Denies fevers or chills. Denies lethargy. Came in for evaluation at the advice of the patient's primary care physician. - Physicial Exam PE: 02/13/18 12:38 GENERAL: Awake, alert, and fully oriented, in no acute distress HEAD: No signs of trauma EYES: EOMI, sclera anicteric, conjunctiva clear ENT: Auricles normal inspection, hearing grossly normal, Moist mucosa NECK: Normal ROM, supple, +thyroid goiter appreciated LUNGS: Breath sounds equal, clear to auscultation bilaterally. No wheezes, and no crackles HEART: Regular rate and rhythm, normal S1 and S2, no murmurs, rubs or gallops EXTREMITIES: Normal range of motion, no edema. No clubbing or cyanosis. No cords, erythema, or tenderness NEUROLOGICAL: Cranial nerves II through XII grossly intact. Normal speech SKIN: Warm, Dry, normal turgor, no rashes or lesions noted. - Medical Decision Making 02/13/18 12:38 Vital Signs Temp Pulse Resp BP Pulse Ox 97.5 F L 64 16 118/52 L 100 02/13/18 11:40 02/13/18 12:14 02/13/18 12:14 02/13/18 12:14 02/13/18 12:14 I suspect the patient's palpitations likely secondary to her thyroid. She had missed her medications. Low suspicion for acute manufacturer syndrome or pulmonary embolus him. No suspicion for thyrotoxicosis or thyroid storm. Patient is no family history of chronic disease and does not smoke herself. We'll check labs including EKG and troponin and thyroid levels. If the workup is unremarkable, the patient can follow-up as an outpatient with her doctor. 02/13/18 14:29 CBC, BMP 02/13/18 13:36 02/13/18 13:36 CMP Sodium 138 mmol/L (136-145) 02/13/18 13:36 Potassium 4.0 mmol/L (3.5-5.1) 02/13/18 13:36 Chloride 108 mmol/L (98-107) H 02/13/18 13:36 Carbon Dioxide 24 mmol/L (21-32) 02/13/18 13:36 Anion Gap 6 MMOL/L (8-16) L 02/13/18 13:36 BUN 9 mg/dL (7-18) 02/13/18 13:36 Creatinine 0.5 mg/dL (0.55-1.3) L 02/13/18 13:36 Creat Clearance w eGFR > 60 (>60) 02/13/18 13:36 Random Glucose 103 mg/dL (74-106) 02/13/18 13:36 Calcium 9.0 mg/dL (8.5-10.1) 02/13/18 13:36 Phosphorus 3.2 mg/dL (2.5-4.9) 02/13/18 13:36 Magnesium 1.8 mg/dL (1.8-2.4) 02/13/18 13:36 Total Bilirubin 0.3 mg/dL (0.2-1) 02/13/18 13:36 AST 33 U/L (15-37) 02/13/18 13:36 ALT 45 U/L (13-61) 02/13/18 13:36 Alkaline Phosphatase 245 U/L (45-117) H 02/13/18 13:36 Creatine Kinase 77 IU/L (26-192) 02/13/18 13:36 Troponin I < 0.02 ng/ml (0.00-0.05) 02/13/18 13:36 Total Protein 8.1 g/dl (6.4-8.2) 02/13/18 13:36 Albumin 3.6 g/dl (3.4-5.0) 02/13/18 13:36 TSH < 0.01 uIU/ml (0.358-3.74) L 02/13/18 13:36 Free T4 1.49 ng/dl (0.76-1.46) H 02/13/18 13:36 Serum , Qual Negative 02/13/18 13:36 02/13/18 14:29 Though TSH is < 0.01, Free T4 is 1.49, slightly above the normal. Will allow the patient to go home with propanolol. Heart Score/ECG Review #1 ECG reviewed & interpreted by me at: 11:45 02/13/18 12:39 NSR 63, no std/dia, normal axis, normal intervals, QTC 401 msec
[2018-02-13 13:42] LABS: BASO % 0.2 % (0-2.0); EOS % 7.9 % (0-4.5); HEMATOCRIT 35.6 % (32.4-45.2); LYMPH % 34.2 % (8-40); MCH 28.2 pg (25.7-33.7); MCHC 33.8 g/dl (32.0-36.0); MEAN CELL VOLUME 83.6 fl (80-96); MEAN PLT VOLUME 8.1 fl (7.5-11.1); MONO % 10.4 % (3.8-10.2); NEUT % 47.3 % (42.8-82.8); PLATELET COUNT 317 K/MM3 (134-434); RBC 4.26 M/mm3 (3.60-5.2); RDW 15.1 % (11.6-15.6)
[2018-02-13 14:22] LABS: ALBUMIN 3.6 g/dl (3.4-5.0); ALK PHOS 245 U/L (45-117); ANION GAP 6 MMOL/L (8-16); BILIRUBIN,TOTAL 0.3 mg/dL (0.2-1); BLOOD UREA NITROGEN 9 mg/dL (7-18); CHLORIDE 108 mmol/L (98-107); CO2 24 mmol/L (21-32); CREATININE 0.5 mg/dL (0.55-1.3); GLUCOSE,RANDOM 103 mg/dL (74-106); MAGNESIUM 1.8 mg/dL (1.8-2.4); PHOSPHOROUS 3.2 mg/dL (2.5-4.9); SGOT/AST 33 U/L (15-37); SGPT/ALT 45 U/L (13-61); SODIUM 138 mmol/L (136-145); TOT PROT 8.1 g/dl (6.4-8.2)
[2018-02-13 15:06] VITALS: BP 104/50; PULSE 81
--- NOTE | 2018-02-14 15:39 | EKG ---
Test Reason : Blood Pressure : / mmHG Vent. Rate : 063 BPM Atrial Rate : 063 BPM P-R Int : 150 ms QRS Dur : 076 ms QT Int : 392 ms P-R-T Axes : 034 043 045 degrees QTc Int : 401 ms NORMAL SINUS RHYTHM SEPTAL INFARCT (CITED ON OR BEFORE 02-DEC-2017) ABNORMAL ECG WHEN COMPARED WITH ECG OF 11-JAN-2018 13:45, QUESTIONABLE CHANGE IN INITIAL [employer] Confirmed by MD Johnie, Andriy ([id number]) on 02/14/2018 3:39:07 PM Referred By: Confirmed By:Andriy Jett MD
== END 2018-02-13 15:00 | disposition home or self-care (01) ==
LOC: JER 11:40
DX: R00.2 Palpitations (principal); E05.90 Thyrotoxicosis, unspecified without thyrotoxic crisis or storm
CPT/HCPCS: 36415; 80053; 82550; 83735; 84100; 84439; 84443; 84480; 84481; 84484; 84703; 85025; 93005; 93010; 99283-25

== ENCOUNTER 2018-07-21 09:02 | Emergency (ER) | payer OTHER ==
[2018-07-21 09:28] VITALS: BP 98/56; PULSE 66; TEMP 99.9; BMI 25.0
--- NOTE | 2018-07-21 09:47 | PDOC ---
History of Present Illness - General Chief Complaint: Eye Problem Stated Complaint: PINK EYE Time Seen by Provider: 07/21/18 09:35 History Source: Patient Exam Limitations: No Limitations - History of Present Illness Initial Comments: 07/21/18 09:52 Onset of bilateral red eyes yesterday, has suffered from a cough and cold for the past few days, is ill at home with same. Woke up this morning with bright red eyes, Timing/Duration: unsure Severity: moderate Past History - Travel Traveled outside of the country in the last 30 days: No Close contact w/someone who was outside of country & ill: No - Past Medical History Allergies/Adverse Reactions: Allergies Allergy/AdvReac Type Severity Reaction Status Date / Time No Known Allergies Allergy Verified 07/21/18 09:28 Home Medications: Ambulatory Orders Magnesium Oxide [Mag-Ox -] 400 mg PO DAILY #0 tablet 12/07/17 Propranolol HCl 40 mg PO TID #45 solution 01/11/18 Budesonide/Formeterol Fumarate [SYMBICORT 160/4.5mcg -] 2 inh PO BID 02/13/18 Methimazole [Tapazole -] 5 mg PO TID 02/13/18 Tobramycin 0.3% Ophth Soln [Tobrex Ophthalmic Solution -] 2 drop OS QID #1 drops 07/21/18 Anemia: Yes COPD: No Liver Disease: Yes Thyroid Disease: Yes (hyper) - Surgical History Appendectomy: Yes - Immunization History Immunization Up to Date: Yes - Suicide/Smoking/Psychosocial Hx Smoking History: Never smoked Have you smoked in the past 12 months: No Information on smoking cessation initiated: No Hx Alcohol Use: No Drug/Substance Use Hx: No Substance Use Type: None Hx Substance Use Treatment: No Review of Systems - Review of Systems Able to Perform ROS?: Yes Is the patient limited Italian proficient: Yes Constitutional: Yes: Symptoms Reported, See HPI, Malaise HEENTM: Yes: Symptoms Reported, See HPI, Tearing Respiratory: Yes: Symptoms reported, See HPI, Cough Musculoskeletal: Yes: Symptoms Reported Neurological: Yes: Symptoms reported, See HPI, Headache (frontal ) All Other Systems: Reviewed and Negative *Physical Exam - Vital Signs Last Vital Signs Temp Pulse Resp BP Pulse Ox 99.9 F H 66 16 98/56 L 100 07/21/18 09:27 07/21/18 09:27 07/21/18 09:27 07/21/18 09:27 07/21/18 09:27 - Physical Exam General Appearance: Yes: Nourished, Appropriately Dressed HEENT: positive: DEEPTHI, TMs Normal, Rhinorrhea, Other (ingestible landmarks easily visualized bright red injected eyes bilaterally with excessive tearing and some conjunctival swelling. Has a whitish clear discharge from both eyes) Neck: positive: Tender, Supple, Lymphadenopathy (R), Lymphadenopathy (L) Respiratory/Chest: positive: Lungs Clear, Normal Breath Sounds Cardiovascular: positive: Regular Rhythm Gastrointestinal/Abdominal: positive: Soft Integumentary: positive: Normal Color, Dry, Warm, Pale Neurologic: positive: personalized living manager nurse II-XII NML intact, Fully Oriented, Alert, Normal Mood/ Affect, Normal Response, Motor Strength 5/5 Moderate Sedation - Procedure Monitoring Vital Signs: Procedure Monitoring Vital Signs Temperature 99.9 F H 07/21/18 09:27 Pulse Rate 66 07/21/18 09:27 Respiratory Rate 16 07/21/18 09:27 Blood Pressure 98/56 L 07/21/18 09:27 O2 Sat by Pulse Oximetry (%) 100 07/21/18 09:27 Medical Decision Making - Medical Decision Making 07/21/18 09:56 Conjunctivitis and URI, will treat with tobramycin *DC/Admit/Observation/Transfer Diagnosis at time of Disposition: Conjunctivitis Qualifiers: Conjunctivitis type: acute Acute conjunctivitis type: unspecified Laterality: bilateral Qualified Code(s): H10.33 - Unspecified acute conjunctivitis, bilateral - Discharge Dispostion Disposition: HOME Condition at time of disposition: Stable Decision to Admit order: No - Referrals - Patient Instructions Additional Instructions: Rest, avoid rubbing eyes Wash hands frequently as this is very contagious Wash hands, use eye drops as directed, wash hands after use Do not share eyedrops with other person to may become infected as this will infect them Tobramycin drops 2 drops to affected eye 4 times a day for 5 days Avoid contact with others until redness and discharge is gone from eyes. Followup with ophthalmology or private physician as needed - Post Discharge Activity Forms/Work/School Notes: Back to Work
[2018-07-21] MEDS ORDERED: TOBRAMYCIN 0.3% OPHTH SOLN 5 ML BOTTLE OU ONE (09:52)
[2018-07-21] MEDS ORDERED: TOBRAMYCIN 0.3% OPHTH SOLN 5 ML BOTTLE ONE (09:55)
== END 2018-07-21 10:03 | disposition home or self-care (01) ==
LOC: JERFT 09:02
DX: H10.33 Unspecified acute conjunctivitis, bilateral (principal); J06.9 Acute upper respiratory infection, unspecified
CPT/HCPCS: 99281-25

== ENCOUNTER 2022-05-16 08:49 | Emergency (ER) | payer BC, OTHER ==
[2022-05-16 08:54] VITALS: BMI 35.2
[2022-05-16] MEDS ORDERED: MECLIZINE HCL 25 MG TABLET (FP) PO ONE (12:19)
[2022-05-16] MEDS ORDERED: ONDANSETRON *ODT* 4 MG TABLET SL ONE (12:22)
[2022-05-16] MEDS ORDERED: MECLIZINE HCL 25 MG TABLET (FP) ONE (12:24)
[2022-05-16] MEDS ORDERED: ONDANSETRON *ODT* 4 MG TABLET ONE (12:44)
[2022-05-16 13:10] LABS: BASO % 0.5 % (0-2.0); EOS % 1.2 % (0-4.5); HEMATOCRIT 41.4 % (32.4-45.2); HEMOGLOBIN 13.4 GM/dL (10.7-15.3); LYMPH % 42.6 % (8-40); MCH 27.9 pg (25.7-33.7); MCHC 32.4 g/dl (32.0-36.0); MEAN PLT VOLUME 8.3 fl (7.5-11.1); MONO % 13.4 % (3.8-10.2); NEUT % 42.3 % (42.8-82.8); PLATELET COUNT 280 10^3/uL (134-434); RBC 4.82 M/mm3 (3.60-5.2); RDW 13.4 % (11.6-15.6); WHITE BLOOD COUNT 3.2 K/mm3 (4.0-10.0)
[2022-05-16 13:21] LABS: CALCIUM 9.5 mg/dL (8.5-10.1)
[2022-05-16 13:22] LABS: BLOOD UREA NITROGEN 8.4 mg/dL (7-18)
[2022-05-16 13:25] LABS: CREATININE 0.5 mg/dL (0.55-1.3)
[2022-05-16 13:26] LABS: BILIRUBIN,TOTAL 0.7 mg/dL (0.2-1); TOT PROT 8.4 g/dl (6.4-8.2)
[2022-05-16 14:48] VITALS: BP 111/68; PULSE 76; RESP 19; TEMP 98.6
== END 2022-05-16 15:03 | disposition home or self-care (01) ==
LOC: JER 08:49
DX: R42 Dizziness and giddiness (principal)
CPT/HCPCS: 0241U-QW; 36415; 80053; 84439; 84443; 84703; 85025; 93005; 93010; 99284-25; Q0162